=== PATIENT | male | born 1950 | race Caucasian/White ===

== ENCOUNTER 2018-05-10 19:31 | Emergency (ER) | payer MEDICARE, MEDICAID ==
[~2018-05-10] VITALS: Ht 175.3 cm; Wt 100.0 kg
[~2018-05-10 19:31] MED LIST: ARIP15TA2 PO; DIVA-78 PO; LEVO50TA11 PO; QUET200T PO; QUET300XR PO
[2018-05-10] MEDS ORDERED: DiphenhydrAMINE HCL 25 MG CAPSULE PO ONE (23:45)
[2018-05-10] MEDS ORDERED: HALOPERIDOL LACTATE 5 MG/ML VIAL IM ONE (23:45)
[2018-05-10] MEDS ORDERED: LORazepam 2 MG/ML VIAL IM ONE (23:45)
[2018-05-11] MEDS ORDERED: DiphenhydrAMINE HCL 50 MG/ML VIAL IM ONE
[2018-05-11 01:38] LABS: BASOPHILS % (AUTO) 0.7 % (0.0-2.0); EOSINOPHILS % (AUTO) 4.3 % (1.0-6.0); HEMATOCRIT 38.9 % (41-53); LYMPHOCYTES # (AUTO) 3.2 K/uL (1.0-4.8); LYMPHOCYTES % (AUTO) 32.5 % (22.0-44.0); MEAN CORPUSCULAR HEMOGLOBIN 28.5 pg (26.0-34.0); MEAN CORPUSCULAR HGB CONC 33.3 G/dL (31.0-37.0); MEAN CORPUSCULAR VOLUME 85 fL (80-100); MONOCYTES # (AUTO) 0.8 K/uL (0.1-1.0); MONOCYTES % (AUTO) 8.5 % (2.0-9.0); NEUTROPHILS # (AUTO) 5.3 K/uL (1.8-7.7); PLATELET COUNT (AUTO) 284 K/uL (150-450); RED BLOOD CELL COUNT(AUTO) 4.56 MIL/uL (4.50-5.90); RED CELL DISTRIBUTION WIDTH 15.4 % (11.5-14.5)
[2018-05-11 01:48] LABS: ANION GAP 2 mmol/L (8-16); CALCIUM, TOTAL 8.9 mg/dL (8.8-10.5); CARBON DIOXIDE 33 mmol/L (22-29); CHLORIDE 103 mmol/L (98-107); CREATININE 0.95 mg/dL (0.60-1.30); GLOMERULAR FILTR. RATE CALC > 60 mL/min (>60); GLUCOSE,RANDOM 91 mg/dL (70-110); POTASSIUM 4.5 mmol/L (3.5-5.1); SODIUM SERUM 138 mmol/L (136-145); UREA NITROGEN, BLOOD 17 mg/dL (7-18)
[2018-05-11 01:54] LABS: ALANINE AMINOTRANSFERASE 22 U/L (12-78); ALBUMIN 3.3 g/dL (3.4-5.0); ALKALINE PHOSPHATASE 88 U/L (46-116); ASPARTATE AMINOTRANSFERASE 15 U/L (15-37); BILIRUBIN,TOTAL 0.2 mg/dL (0.1-1.0); TOTAL PROTEIN, SERUM 6.8 g/dL (6.4-8.2)
[2018-05-11 01:56] LABS: VALPROIC ACID < 3 mcg/mL (50-100)
[2018-05-11 03:24] VITALS: BP 129/77
== END 2018-05-11 03:27 | disposition home or self-care (01) ==
LOC: EMS 19:32
DX: F20.9 Schizophrenia, unspecified (principal); I10 Essential (primary) hypertension; J44.9 Chronic obstructive pulmonary disease, unspecified; E03.9 Hypothyroidism, unspecified; Z79.899 Other long term (current) drug therapy
CPT/HCPCS: 36415; 80053; 80164; 85025; 96372; 99284; G0480; J1200; J1630; J2060

== ENCOUNTER 2018-11-07 10:17 | Emergency (ER) | payer MEDICARE, MEDICAID ==
[~2018-11-07] VITALS: Ht 177.8 cm; Wt 100.0 kg
[2018-11-07] MEDS ORDERED: HALOPERIDOL LACTATE 5 MG/ML VIAL IM ONE ×2 (12:30→13:30)
[2018-11-07] MEDS ORDERED: LORazepam 2 MG/ML VIAL IM ONE ×2 (12:30→13:30)
[2018-11-07] MEDS ORDERED: PERTUSS(ACELL),DIPH,TET VAC/PF 0.5 ML VIAL IM ONE (12:30)
[2018-11-07] MEDS ORDERED: DiphenhydrAMINE HCL 50 MG/ML VIAL IM ONE (12:30)
[2018-11-07] MEDS ORDERED: HALO10 PO (12:31)
[2018-11-07] MEDS ORDERED: HALO50AM2 IM (12:31)
[2018-11-07] MEDS ORDERED: BUDE10.2 IH (12:31)
[2018-11-07 13:02] LABS: AMPHET/METH SCREEN,URINE NEGATIVE (NEGATIVE); BARBITURATE SCREEN, URINE NEGATIVE (NEGATIVE); BENZODIAZEPINES SCREEN,URINE NEGATIVE (NEGATIVE); CANNABINOID SCREEN,URINE NEGATIVE (NEGATIVE); COCAINE SCREEN,URINE NEGATIVE (NEGATIVE); METHADONE SCREEN, URINE NEGATIVE (NEGATIVE); OPIATE SCREEN,URINE NEGATIVE (NEGATIVE)
[2018-11-07 13:07] LABS: PHENCYCLIDINE SCREEN,URINE NEGATIVE (NEGATIVE)
[2018-11-07] MEDS ORDERED: BUPIVACAINE HCL/PF 0.25% 10 ML VIAL INJ ONE (13:45)
[2018-11-07] MEDS ORDERED: KETAMINE HCL 50 MG/ML 10 ML VIAL IM ONE (14:15)
[2018-11-07 17:23] VITALS: BP 117/83
== END 2018-11-07 18:18 | disposition home or self-care (01) ==
LOC: EMS 10:18
DX: S61.412A Laceration without foreign body of left hand, initial encounter (principal); F20.9 Schizophrenia, unspecified; I10 Essential (primary) hypertension; J44.9 Chronic obstructive pulmonary disease, unspecified; E03.9 Hypothyroidism, unspecified; F17.210 Nicotine dependence, cigarettes, uncomplicated; Z79.899 Other long term (current) drug therapy; Z88.8 Allergy status to other drugs, medicaments and biological substances; W25.XXXA Contact with sharp glass, initial encounter; Y93.89 Activity, other specified; Y92.89 Other specified places as the place of occurrence of the external cause; Y99.8 Other external cause status
CPT/HCPCS: 12002; 73130; 80307; 90471; 90715; 96372; 99152; 99285; J1200; J1630; J2060; J3490 ×2

== ENCOUNTER 2019-03-30 11:02 | Emergency (ER) | payer MEDICARE, MEDICAID ==
[~2019-03-30] VITALS: Ht 177.8 cm; Wt 103.5 kg
[~2019-03-30 11:02] MED LIST changes: -ARIP15TA2 PO; +BUDE10.2 IH; -DIVA-78 PO; +HALO10 PO; +HALO50AM2 IM; -QUET200T PO; -QUET300XR PO
[2019-03-30] MEDS ORDERED: IPRA4AER IH (11:41)
[2019-03-30] MEDS ORDERED: SIME125C PO (11:41)
[2019-03-30] MEDS ORDERED: TRAZ-220 PO (11:41)
[2019-03-30] MEDS ORDERED: BUDE10.2 IH (11:41)
[2019-03-30] MEDS ORDERED: ATEN50TA PO (11:41)
[2019-03-30] MEDS ORDERED: CHLO100T24 PO (11:41)
[2019-03-30] MEDS ORDERED: LEVO75 PO (11:41)
[2019-03-30] MEDS ORDERED: OLAN10TA3 PO (11:41)
[2019-03-30 12:53] LABS: BASOPHILS % (AUTO) 0.4 % (0.0-2.0); EOSINOPHILS % (AUTO) 0 % (1.0-6.0); HEMATOCRIT 39.6 % (41-53); LYMPHOCYTES # (AUTO) 1.5 K/uL (1.0-4.8); LYMPHOCYTES % (AUTO) 20.1 % (22.0-44.0); MEAN CORPUSCULAR HEMOGLOBIN 26.9 pg (26.0-34.0); MEAN CORPUSCULAR HGB CONC 32.9 G/dL (31.0-37.0); MEAN CORPUSCULAR VOLUME 82 fL (80-100); MONOCYTES # (AUTO) 0.8 K/uL (0.1-1.0); MONOCYTES % (AUTO) 10.9 % (2.0-9.0); NEUTROPHILS # (AUTO) 5.2 K/uL (1.8-7.7); NEUTROPHILS % (AUTO) 68.6 % (40.0-70.0); PLATELET COUNT (AUTO) 239 K/uL (150-450); RED BLOOD CELL COUNT(AUTO) 4.84 MIL/uL (4.50-5.90)
[2019-03-30 13:27] LABS: ANION GAP 7 mmol/L (8-16); CARBON DIOXIDE 28 mmol/L (22-29); CHLORIDE 100 mmol/L (98-107); CREATININE 0.96 mg/dL (0.60-1.30); GLOMERULAR FILTR. RATE CALC > 60 mL/min (>60); GLUCOSE,RANDOM 117 mg/dL (70-110); POTASSIUM 4.4 mmol/L (3.5-5.1); SODIUM SERUM 135 mmol/L (136-145); UREA NITROGEN, BLOOD 17 mg/dL (7-18)
[2019-03-30 13:29] LABS: ALANINE AMINOTRANSFERASE 21 U/L (12-78); ALBUMIN 3.2 g/dL (3.4-5.0); ALKALINE PHOSPHATASE 85 U/L (46-116); ASPARTATE AMINOTRANSFERASE 16 U/L (15-37); BILIRUBIN,TOTAL 0.3 mg/dL (0.1-1.0); TOTAL PROTEIN, SERUM 6.8 g/dL (6.4-8.2)
[2019-03-30 14:41] LABS: APPEARANCE,URINE CLEAR (CLEAR); BILIRUBIN,URINE NEGATIVE (NEGATIVE); GLUCOSE, URINE (UA) NEGATIVE (NEGATIVE); KETONES,URINE NEGATIVE (NEGATIVE); LEUKOCYTE ESTERASE ,URINE NEGATIVE (NEGATIVE); NITRATE,URINE NEGATIVE (NEGATIVE); OCCULT BLOOD,URINE NEGATIVE (NEGATIVE); PH,URINE 6.5 (5.0-8.0); PROTEIN,URINE NEGATIVE (NEGATIVE); UROBILINOGEN,URINE 0.2 mg/dL (<=1.0)
[2019-03-30 14:42] LABS: BACTERIA,URINE None Seen /HPF (None Seen); RBC,URINE None Seen /HPF (0-2); WBC,URINE None Seen /HPF (0-5)
[2019-03-30 14:45] LABS: AMPHET/METH SCREEN,URINE NEGATIVE (NEGATIVE); BARBITURATE SCREEN, URINE NEGATIVE (NEGATIVE); BENZODIAZEPINES SCREEN,URINE NEGATIVE (NEGATIVE); CANNABINOID SCREEN,URINE NEGATIVE (NEGATIVE); COCAINE SCREEN,URINE NEGATIVE (NEGATIVE); METHADONE SCREEN, URINE NEGATIVE (NEGATIVE); OPIATE SCREEN,URINE NEGATIVE (NEGATIVE)
[2019-03-30 14:55] LABS: PHENCYCLIDINE SCREEN,URINE NEGATIVE (NEGATIVE)
[2019-03-30] MEDS ORDERED: HALOPERIDOL LACTATE 5 MG/ML VIAL IM ONE (15:00)
[2019-03-30] MEDS ORDERED: LORazepam 2 MG/ML VIAL IM ONE (15:00)
[2019-03-30 16:00] VITALS: BP 140/85
== END 2019-03-30 16:23 | disposition home or self-care (01) ==
LOC: EMS 11:03
DX: F20.9 Schizophrenia, unspecified (principal); I10 Essential (primary) hypertension; E03.9 Hypothyroidism, unspecified; J44.9 Chronic obstructive pulmonary disease, unspecified; F17.210 Nicotine dependence, cigarettes, uncomplicated; Z88.8 Allergy status to other drugs, medicaments and biological substances; Z79.899 Other long term (current) drug therapy
CPT/HCPCS: 36415; 80053; 80307; 81001; 85025; 96372; 99284; G0480; J1630; J2060